=== PATIENT | female | born 1960 | race African-American/Black ===

== ENCOUNTER 2017-02-13 12:16 | Emergency (ER) | payer BC, OTHER ==
--- NOTE | 2017-02-13 12:27 | PDOC ---
History of Present Illness - General Chief Complaint: Palpitations Stated Complaint: HEART PALPITATIONS Time Seen by Provider: 02/13/17 12:26 - History of Present Illness Initial Comments: 02/15/17 07:55 Chief complaint: Palpitations History of present illness: Patient complains of a "fluttering" in the left upper chest, intermittent, lasting only several seconds when it occurs. Denies any robin chest pain, shortness of breath, nausea, diaphoresis, lightheadedness , or dizziness. Review of systems: As above. In addition, denies robin chest pain, abdominal pain, vomiting, diarrhea, urinary tract symptoms, vaginal bleeding or discharge , visual or focal neurologic symptoms, unsteadiness of gait Past medical history: [id number] diabetes, high blood pressure, all controlled medication Social history: Patient admits anxiety, fatigue due to working 16 hour days, 6 days a week. Feels she is under stress. However, states she has friends and family members with him she thought, and it makes her feel better Family history: Reviewed and noncontributory including early coronary artery disease, metabolic disease including diabetes, cancer Physical exam: Alert and oriented, well-developed well-nourished, appears somewhat anxious, tearful at times, but otherwise in no acute distress No pain or palpitations at present Afebrile, vital signs normal HEENT clear Neck supple without mass or nodes Chest clear CV regular without murmur or gallop Abdomen benign Neurological C2 to 12 intact. Strength full and symmetric. No focal sensory or motor deficits. Gait stable and in apparent Psychiatric: Anxiety, possible mild depression due to her work schedule and limited time for relaxation, family activities. However, no suggestion of suicidal or homicidal ideations Impression: Fatigue, anxiety, stress induced physical symptoms Plan: EKG was performed. Normal sinus rhythm, no ST-T wave changes, normal EKG. Patient was counseled about her physical health suffering from her stress and is using her work activities and obtaining more rest and recreation, family time. She was discharged feeling better, to follow up with her primary physician , or return if symptoms worsen or further symptoms developed. Past History - Past Medical History Allergies/Adverse Reactions: Allergies Allergy/AdvReac Type Severity Reaction Status Date / Time No Known Allergies Allergy Verified 02/13/17 12:45 Home Medications: Ambulatory Orders Amlodipine Besylate 10 mg PO DAILY 02/13/17 Lisinopril [Prinivil -] 40 mg PO DAILY 02/13/17 Metformin HCl 500 mg PO BID 02/13/17 Cardiac Disorders: Yes (leaky valve) HTN: Yes - Psycho/Social/Smoking Cessation Hx Smoking History: Former smoker Have you smoked in the past 12 months: Yes If you are a former smoker, when did you quit?: 2 wks ago 'Breaking Loose' booklet given: 12/31/13 Hx Alcohol Use: No Drug/Substance Use Hx: No Substance Use Type: None Hx Substance Use Treatment: No *Physical Exam - Vital Signs Last Vital Signs Temp Pulse Resp BP Pulse Ox 98 F 57 L 20 154/73 100 02/13/17 12:17 02/13/17 14:07 02/13/17 14:07 02/13/17 14:07 02/13/17 14:07 ED Treatment Course - LABORATORY CBC & Chemistry Diagram: 02/13/17 12:55 02/13/17 12:26 - ADDITIONAL ORDERS Additional order review: 02/13/17 12:55 RBC 4.76 MCV 82.1 MCHC 31.8 L RDW 15.1 MPV 8.8 Neutrophils % 56.5 Lymphocytes % 31.5 Monocytes % 8.0 Eosinophils % 1.8 Basophils % 2.2 H - RADIOLOGY Radiology Studies Ordered: Category Date Time Status CHEST X-RAY PORTABLE* [RAD] Stat Radiology 02/13/17 12:26 Completed *DC/Admit/Observation/Transfer Diagnosis at time of Disposition: Palpitations - Discharge Dispostion Disposition: HOME Condition at time of disposition: Improved Admit: No - Patient Instructions Printed Discharge Instructions: DI for Anxiety -- Adult, Stress (Alternative Therapy) Additional Instructions: Relaxation techniques. Consider working shorter hours. Consider exercise, meditation, or yoga. Her graft see your primary physician for further counseling and - Post Discharge Activity Work/School Note: Back to Work
[2017-02-13 12:55] VITALS: TEMP 98; BMI 24.3
[2017-02-13 12:55] LABS: BASOPHIL 2.2 % (0-2.0); EOSINOPHIL 1.8 % (0-4.5); MCH 26.1 pg (25.7-33.7); MCHC 31.8 g/dl (32.0-36.0); MEAN CELL VOLUME 82.1 fl (80-96); MEAN PLT VOLUME 8.8 fl (7.5-11.1); NEUTROPHILS 56.5 % (42.8-82.8); PLATELET COUNT 376 K/MM3 (134-434); RDW 15.1 % (11.6-15.6); WHITE BLOOD COUNT 5.8 K/mm3 (4.0-10.8)
[2017-02-13 13:02] LABS: URINE APPEARANCE Clear; URINE BILIRUBIN Negative (NEGATIVE); URINE BLOOD Negative (NEGATIVE); URINE GLUCOSE (UA) Negative (NEGATIVE); URINE KETONE Negative (NEGATIVE); URINE LEUK ESTERASE Negative (NEGATIVE); URINE NITRITE Negative (NEGATIVE); URINE PROTEIN Negative (NEGATIVE); URINE UROBILINOGEN 0.2 E.U/dl (0.2-1.0)
[2017-02-13 13:14] LABS: ALK PHOS 79 U/L (32-92); ANION GAP 8 (8-16); BILIRUBIN,TOTAL 0.3 mg/dl (0.2-1.0); CALCIUM 9.1 mg/dl (8.4-10.2); CO2 25 mmol/L (22-28); CREATININE 0.5 mg/dl (0.6-1.3); GLUCOSE,RANDOM 127 mg/dl (74-106); SGOT/AST 20 U/L (10-42); SGPT/ALT 18 U/L (10-40); TOT PROT 6.9 g/dl (6.4-8.3)
[2017-02-13 13:14] LABS: URINE COLOR YELLOW
[2017-02-13 13:15] LABS: CPK(DFH) 279 IU/L (26-140)
[2017-02-13 13:19] LABS: INR 1.06 (0.82-1.09); PROTHROMBIN TIME (PATIENT) 11.8 SEC (10.2-13.0)
[2017-02-13 14:13] VITALS: BP 154/73; PULSE 57
[2017-02-13 15:45] LABS: TROPONIN I (DFP) < 0.03 ng/ml (0.03-0.50)
[2017-02-13 16:07] LABS: CK MB 2.4 ng/ml (0.3-4.0)
--- NOTE | 2017-02-15 13:00 | EKG ---
Test Reason : Blood Pressure : / mmHG Vent. Rate : 074 BPM Atrial Rate : 074 BPM P-R Int : 128 ms QRS Dur : 086 ms QT Int : 376 ms P-R-T Axes : -01 045 058 degrees QTc Int : 417 ms NORMAL SINUS RHYTHM NORMAL ECG NO PREVIOUS ECGS AVAILABLE Confirmed by KIM DEL TORO MD ([id number] on 02/15/2017 1:00:11 PM Referred By: SHERWIN Confirmed By:KIM DEL TORO MD
== END 2017-02-13 16:20 | disposition home or self-care (01) ==
LOC: FER 12:16
DX: R00.2 Palpitations (principal); E11.9 Type 2 diabetes mellitus without complications; I10 Essential (primary) hypertension; Z79.84 Long term (current) use of oral hypoglycemic drugs; F41.9 Anxiety disorder, unspecified
CPT/HCPCS: 36415; 71010-TC; 80053; 81003; 82550; 82553; 84484; 85025; 85610; 93005; 99284-25